=== PATIENT | male | born 2000 | race Caucasian/White ===

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

== ENCOUNTER 2023-05-12 11:46 | Emergency (ER) | payer OTHER ==
[2023-05-12 12:04] LABS: BASOPHILS ABSOLUTE AUTO 0.1 K/mm3 (0.0-0.2); BASOPHILS PERCENT AUTO 0.3 % (0.0-1.0); EOSINOPHILS ABSOLUTE AUTO 0.1 K/mm3 (0.0-0.4); EOSINOPHILS PERCENT AUTO 0.2 % (0.0-6.0); HEMOGLOBIN 14.7 gm/dl (14.0-18.0); IMMATURE GRAN ABSOLUTE AUTO 0.27 K/mm3 (0.00-0.05); LYMPHOCYTES ABSOLUTE AUTO 3.8 K/mm3 (1.0-4.8); LYMPHOCYTES PERCENT AUTO 13.7 % (24.0-44.0); MEAN CORPUSCULAR HEMOGLOBIN 32.8 pg (28.0-32.0); MEAN CORPUSCULAR HGB CONC 34.2 g/dl (32.0-36.0); MEAN PLATELET VOLUME 9.9 fl (9.4-12.4); MONOCYTES ABSOLUTE AUTO 1.7 K/mm3 (0.0-0.8); NEUTROPHILS ABSOLUTE AUTO 21.8 K/mm3 (1.8-7.7); NEUTROPHILS PERCENT AUTO 78.8 % (41.0-71.0); PLATELET COUNT,PLT 304 K/mm3 (150-400); RED BLOOD CELL COUNT 4.48 M/mm3 (4.52-5.90)
[2023-05-12 12:21] LABS: PROTHROMBIN TIME 10.7 SECONDS (9.7-12.0)
[2023-05-12 12:22] LABS: PTT,PARTIAL THROMBOPLSTIN TIME 25.1 SECONDS (21.7-31.4)
[2023-05-12 12:24] LABS: A/G RATIO 1.1 (1-2); ALANINE AMINOTRANSFERASE,ALT 194 U/L (16-63); ALBUMIN 3.7 g/dl (3.4-5.0); ALKALINE PHOSPHATASE 60 U/L (46-116); AMYLASE 27 U/L (25-115); ANION GAP 15.5 (5-15); ASPARTATE AMNIOTRANSFERASE,AST 107 U/L (15-37); BILIRUBIN TOTAL 0.5 mg/dL (0.2-1.0); BLOOD UREA NITROGEN,BUN 17 mg/dL (7-18); CALCIUM 8.9 mg/dL (8.5-10.1); CARBON DIOXIDE,CO2 26 mEq/L (21-32); CHLORIDE,CL 101 mEq/L (98-107); ESTIMATED GFR 109 mL/min (>60); GLUCOSE RANDOM 222 mg/dL (70-99); POTASSIUM,K 4.5 mEq/L (3.5-5.1); PROTEIN TOTAL,TP 7.2 g/dl (6.4-8.2); SODIUM,NA 138 mEq/L (136-145)
[2023-05-12] MEDS: Sodium Chloride 0.9% 10 ML Syringe FLUSH PRN (12:24)
[2023-05-12] MEDS: Sodium Chloride 0.9% 100 ML IV SCH (12:24)
[2023-05-12] MEDS: Iopamidol 612 MG/ML 100 ML Bottle IVPUSH ONE (12:24)
[2023-05-12] MEDS: Morphine 4 MG/ML Syringe IVPUSH ONE ×2 (12:32→12:53)
[2023-05-12] MEDS ORDERED: Naloxone 0.4 MG/ML SDV IVPUSH PRN (12:33)
[2023-05-12] MEDS: Iopamidol 612 MG/ML 30 ML SDV IVPUSH ONE (12:36)
[2023-05-12 12:38] LABS: SLIDE REVIEW ABNORMAL SMEAR
[2023-05-12] MEDS: Morphine 4 MG/ML Syringe ONE ×2 (12:51)
[2023-05-12] MEDS: HYDROmorphone 1 MG/ML Syringe IVPUSH ONE (13:02)
[2023-05-12] MEDS: HYDROmorphone 0.5 MG/0.5 ML Syringe IVPUSH ONE ×2 (14:12→16:38)
[2023-05-12] MEDS ORDERED: Tranexamic Acid 1,000 MG/10 ML Vial IV ONE (14:29)
[2023-05-12] MEDS: Lactated Ringers 1,000 ML IV ONE (14:48)
[2023-05-12] MEDS: Tranexamic Acid 2,000 MG in Sodium Chloride 0.9% 100 ML IV ONE (14:56)
[2023-05-12] MEDS ORDERED: Lactated Ringers 1,000 ML IV SCH (16:00)
[2023-05-12 18:21] VITALS: BP 118/61; PULSE 125
== END 2023-05-12 16:50 ==
LOC: JD.ED 11:46
DX: S81.811A Laceration without foreign body, right lower leg, initial encounter (principal); S87.81XA Crushing injury of right lower leg, initial encounter; S33.4XXA Traumatic rupture of symphysis pubis, initial encounter; S39.93XA Unspecified injury of pelvis, initial encounter; S40.012A Contusion of left shoulder, initial encounter; S20.91XA Abrasion of unspecified parts of thorax, initial encounter; V09.09XA Pedestrian injured in nontraffic accident involving other motor vehicles, initial encounter
CPT/HCPCS: 36415; 71260; 72170; 73560; 73590; 73610; 74177; 80053; 82150; 83605; 85025; 85610; 85730; 86850; 86900; 86901; 96365; 96375; 96376; 99285; J1170; J2270; J3490; J7120; Q9967